=== PATIENT | male | born 1980 | race Caucasian/White ===

== ENCOUNTER 2021-03-15 13:13 | Emergency (ER) | payer OTHER, BC ==
[2021-03-15 13:53] VITALS: BP 156/123; PULSE 91; TEMP 98.2; BMI 47.6
[2021-03-15] MEDS ORDERED: IBUPROFEN 600 MG TABLET (FP) PO ONE ×2 (15:39→15:41)
== END 2021-03-15 17:14 | disposition home or self-care (01) ==
LOC: JERFT 13:13
DX: S60.312A Abrasion of left thumb, initial encounter (principal); M54.2 Cervicalgia; Y04.8XXA Assault by other bodily force, initial encounter
CPT/HCPCS: 72040-TC; 99283-25